=== PATIENT | female | born 1985 | race Caucasian/White ===

== ENCOUNTER 2017-01-26 13:55 | Emergency (ER) | payer OTHER ==
[~2017-01-26] VITALS: Ht 165.1 cm; Wt 49.9 kg
--- NOTE | 2017-01-26 15:08 | NUR ---
Dr Dickey at the bedside for eval and exam.
[2017-01-26 15:38] VITALS: BP 112/78
[2017-01-30] MEDS ORDERED: BARIUM SULFATE 240 ML ORAL.SUSP PO ONE (20:15)
[2017-01-30] MEDS ORDERED: BARIUM SULFATE 148 GM SUSP.RECON PO ONE (20:15)
== END 2017-01-26 15:40 | disposition home or self-care (01) ==
LOC: ER 13:55
DX: T40.4X5A Adverse effect of other synthetic narcotics, initial encounter (principal); K04.7 Periapical abscess without sinus; Y92.9 Unspecified place or not applicable
CPT/HCPCS: 99283; A4663